=== PATIENT | male | born 2000 | race African-American/Black ===

== ENCOUNTER 2021-07-06 15:48 | Emergency (ER) | payer OTHER ==
[~2021-07-06] VITALS: Ht 180.3 cm; Wt 72.2 kg
[2021-07-06 20:54] LABS: RSV AMPLIFICATION NEGATIVE (NEGATIVE)
[2021-07-06] MEDS ORDERED: TESS100C PO (21:14)
[2021-07-06] MEDS ORDERED: VENTAER INH (21:14)
[2021-07-06 21:22] VITALS: BP 132/80
== END 2021-07-06 21:23 | disposition home or self-care (01) ==
LOC: M ED 15:48
DX: R50.9 Fever, unspecified (principal); R05.9 Cough, unspecified; R51.9 Headache, unspecified; U07.1 COVID-19

== ENCOUNTER 2022-09-29 17:20 | Emergency (ER) | payer OTHER ==
[~2022-09-29] VITALS: Ht 180.3 cm; Wt 77.3 kg
[~2022-09-29 17:20] MED LIST: TESS100C PO; VENTAER INH
[2022-09-29 19:26] LABS: RSV AMPLIFICATION NEGATIVE (NEGATIVE)
[2022-09-29] MEDS ORDERED: IBUPROFEN 600MG TAB PO ONE (19:45)
[2022-09-29] MEDS ORDERED: BENZ1LOZ9 PO (19:45)
[2022-09-29] MEDS ORDERED: IBUP-1022 PO (19:45)
[2022-09-29] MEDS ORDERED: CEPACOL LOZENGE PO ONE (19:45)
[2022-09-29 19:53] VITALS: BP 152/70
== END 2022-09-29 20:03 | disposition home or self-care (01) ==
LOC: M ED 17:20
DX: J02.9 Acute pharyngitis, unspecified (principal); Z79.51 Long term (current) use of inhaled steroids